=== PATIENT | male | born 1965 | race Caucasian/White ===

== ENCOUNTER 2022-01-12 10:00 | Outpatient (NON) | payer BC, SELFPAY | END 2022-01-12 10:01 | disposition home or self-care (01) | LOC: ANHLAB 01-13 11:39 | PROVIDERS: PCP Internal Medicine; Visit Provider Nurse Practitioner | DX: D22.71 Melanocytic nevi of right lower limb, including hip (principal) | CPT/HCPCS: 88305; 88342 ==

== ENCOUNTER 2024-10-14 14:44 | Emergency (ER) | payer BC, SELFPAY ==
--- NOTE | ~2024-10-14 | XR_ITS ---
EXAM: XR ankle LT min 3V, XR foot LT min 3V DATE: 10/14/2024 15:25 HISTORY: pain with trauma . COMPARISON: None available. FINDINGS: Normal mineralization. Comminuted calcaneal fracture involving fractures of the anterior p rocess, anterior body, and a horizontally oriented fracture posteriorly extending to the posterior co rtex. Irregular calcific or ossific density lateral to the lateral malleolus. No lytic or blastic les ion. Joint spaces are maintained. No erosion or periosteal change. Circumferential ankle swelling gre ater laterally. Large ankle joint effusion. IMPRESSION: Comminuted calcaneal fracture. Large ankle joint effusion. Calcific/ossific fragment zac cent to the lateral malleolus may represent chronic dystrophic change versus an acute fracture fragme nt with unclear donor site. Reviewed, dictated and finalized at location K. IMPRESSION: Comminuted calcaneal fracture. Large ankle joint effusion. Calcific /ossific fragment adjacent to the lateral malleolus may represent chronic dystr ophic change versus an acute fracture fragment with unclear donor site.
--- OUTSIDE RECORDS SUMMARY | 2024-10-14 14:46 | XMS_ITS | Clinical Summary ---
Author Organization [facility] Address [address] [place] [address] Care Team Providers Care Corporate Strategy Associate Name Role Phone Rodney Mtz MD Primary Care Provider [phone] Allergies No known active allergies Medications aspirin 81 mg enteric coated tablet Take 1 tablet (81 mg total) by mouth daily Active losartan-hydroC HLOROthiazide (HYZAAR) 50-12.5 mg per tablet Take 1 tablet by mouth daily Active metoprolol XL (TOPROL-XL) 25 mg extended release tablet Take 0.5 tablets (12.5 mg total) by mouth daily 02/03/2024 Active Active Problems Problem Noted Date Diagnosed Date 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 Overview (09/27/2018): Added automatically from request for surgery [id number] Encounters Date Type Department Care Team Description 09/20/2024 12:20 PM CDT - 09/20/2024 11:59 PM CDT Hospital Encounter [facility] Cardiac Diagnostic Lab [address] [address] Aneurysm of ascending aorta without rupture Discharge Disposition: Discharge to home or self care from Last 3 Months Surgical History Surgery Date Site/Laterality Comments COLONOSCOPY CAROTID ENARTERECTOMYY Medical History Medical History Date Comments HTN (hypertension) Stroke (HCC) Family History Medical History Relation Name Comments Heart attack Father Heart attack Paternal Grandfather Relation Name Status Comments Father Paternal Grandfather Social History Tobacco Use Types Packs/Day Years Used Date Smoking Tobacco: Never Smokeless Tobacco: Never Alcohol Use Standard Drinks/Week Comments Yes 25 (1 standard drink = 0.6 oz pu re alcohol) Sex and Gender Information Value Date Recorded Sex Assigned at Not on file Legal Sex Male 12:34 PM CDT Gender Identity Not on file Sexual Orientation Straight 11/29/2018 2: 07 PM CDT Obstetrics History Last Filed Vital Signs Vital Sign Reading Time Taken Comments Blood Pressure 146/94 03/06/2024 8:15 AM LAUNCH STEWARD Pulse 63 03/06/2024 8:15 AM LAUNCH STEWARD Temperature 36.2 C (97.1 F) 12/05/2019 10:39 AM CDT Respiratory Rate 18 10/24/2018 8:07 AM CDT Oxygen Saturation 100% 03/06/2024 8:15 AM LAUNCH STEWARD Inhaled Oxygen Concentration - - Weight 95.1 kg (209 lb 9.6 oz) 03/06/2024 8:15 A M LAUNCH STEWARD Height 190.5 cm (6' 3) 03/06/2024 8:15 AM LAUNCH STEWARD Body Mass Index 26.2 03/06/2024 8:15 AM LAUNCH STEWARD Plan of Treatment Health Maintenance Due Date Last Done Comments Colon Cancer Screening-Colonoscopy 1965 Depression Screening 1965 Hepatitis C Screening 1965 Prostate Cancer Screening-PSA 1963 DTaP/Tdap/Td Vaccine (1 - Tdap) 1974 Hepatitis B Screening 1981 Regular Well Visit/Exam 18-64 1981 Covid-19 Vaccine (3 - 2023-2 5 season) 2023 06/10/2020, 05/13/2020 Influenza Vaccine (#1) 2024 , 01/17/2018 Zoster Vaccine Completed 05/02/2018, 11/24/2017 Pneumococcal vaccine <65 Aged Out No longer eligible based on patient's age to complete this topic Medical Devices Implanted Type Area Engineering Systems Analyst Device Identifier Shelf Expiration Date Model / Serial / Lot [employer] [id number] Vascu-Guard 8x.8cm Peripheral Patch Vascular Bovine Pericardium - S0 - [id number] Implanted:Qty: 1 on 10/23/2018 by Britton Conway MD at [facility] Other - see comments Right: Carotid [employer] 05/04/2023 [id number] / 0 / [id number] Procedures Procedure Name Priority Date/Time Associated Diagnosis Comments TRANSTHORACIC ECHO (TTE) COMPLETE W DOPPLER/CF W CONTRAST Routine 09/20/2024 1:49 PM CDT Aneurysm of ascending aorta without rupture from Last 3 Months Results * TRANSTHORACIC ECHO (TTE) COMPLETE W DOPPLER/CF W CONTRAST (09/20/2024 1:49 PM CDT) EF Mod BP 79 % CONS SCIMAGE Anatomical Region Laterality Modality Ultrasound 09/20/2024 12:4 9 PM CDT Narrative 09/20/2024 3:02 PM CDT [facility] Cardiac [place] [address] [place] [address] Transthoracic Echocardiographic Report Patient Name: JOE OWENS S : 1965 (59y 8m) Gender: M Study Date: 09/20/2024 12:49:40 PM Ht(Inch): 75 Wt(LB): 209 BSA: 2.24 Survey Instrument Operator: Monserrat Zuñiga [facility] Location: [facility] Order Provider: FIDEL SINGH Heart Rate: 70 BMI: 26.12 BP: 152 / 77 Ref.Provider: FIDEL SINGH Procedures: Echocardiographic Report: Transthoracic complete echo with strain imaging and contrast, 2D, spectral and tissue Doppler, color flow Doppler, M-mode. Contrast: Contrast Enhancement was Employed: After initial imaging due to sub- optimal quality related to co-morbidity defined by patient's body habitus and due to suboptimal image quality with inadequate visualization of at least 2 of 16 LV wall segments in any view after initial imaging. Perflutren contrast was administered using the volume necessary to obtain adequate images. 0.15 ml Definity Administered, (1.35 ml wasted). Technically difficult study due to: Body habitus. Poor acoustic windows. Indications: I71.21 Aneurysm of the ascending aorta, without rupture. Conclusions: 1. Normal left ventricular size. Normal LV wall thickness. There is hyperdynamic left ventricular systolic function - LVEF measured at 79 %. Normal diastolic function. The average global longitudinal strain is normal. The LV global strain is: -21.3 %. 2. There are no regional wall motion abnormalities. 3. Normal right ventricular size. Normal right ventricular systolic function. 4. There is no significant valvular heart disease. 5. Normal-sized atria. 6. Unable to determine PASP due to inadequate TR jet. 7. Normal aortic root size when indexed (sinus of Valsalva 37 mm). Dilation of the ascending aorta when indexed (mid ascending aorta 40 mm). 8. IVC is normal in size. The estimated RA pressure is 3 mmHg. 9. Normal pericardium without pericardial effusion. Comparisons: Recommendations: Attestation: I have personally reviewed and interpreted this study without fellow or resident. Disclaimer: The study images and the final report will be retained in the patient chart by the Echo Laboratory for the legally required time period. This chart constitutes the legal record of any testing performed. Findings: Left Ventricle: Normal left ventricular size based on volume index. Normal LV wall thickness. There is hyperdynamic left ventricular systolic function. The Ejection Fraction (Perez's) is measured at 79 % Normal diastolic function. The average global longitudinal strain is normal. The LV global strain is: -21.3 % Regional Wall Motion: There are no regional wall motion abnormalities. Right Ventricle: Normal right ventricular size. Normal right ventricular systolic function. Left Atrium: The left atrium is normal in size. Right Atrium: The right atrium is normal in size. Mitral Valve: Normal mitral valve structure. No mitral regurgitation. No stenosis present. Aortic Valve: Normal trileaflet aortic valve. No aortic regurgitation. No aortic valve stenosis. The mean transaortic gradient is 4 mmHg Tricuspid Valve: Normal tricuspid valve structure. Trivial tricuspid regurgitation. Pulmonic Valve: Normal pulmonic valve structure. Trivial pulmonic regurgitation. Pericardium: Normal pericardium without pericardial effusion. Aorta: Normal aortic root size when indexed (sinus of Valsalva 37 mm). Dilation of the ascending aorta when indexed (mid ascending aorta 40 mm). IVC: IVC is normal in size. The estimated RA pressure is 3 mmHg. PASP: Unable to determine PASP due to inadequate TR jet. Measurements: 2D/MM Value Range Doppler Value Range LVIDd 2D 4.70 cm [ 4.20 - 5.80 ] AV Peak Peter 1.3 m/s [ 1.0 - 1.7 ] LVIDs 2D 2.61 cm [ 2.50 - 4.00 ] AV Peak PG 6.76 mmHg IVSd 2D 0.93 cm [ 0.60 - 1.00 ] AV Mean PG 4 mmHg LVPWd 2D 0.91 cm [ 0.60 - 1.00 ] AV VTI 26.6 cm LV Thickness Ratio 1.0 LVOT Peak Peter 1.1 m/s [ 0.7 - 1.1 ] LV FS 2D 44.44 % [ 25.00 - 43.00 ] LVOT Peak PG 4.84 mmHg LV Mass 2D 150.27 g LVOT Mean PG 3 mmHg LV Mass Index 2D 67.08 g/m2 LVOT VTI 21.1 cm RWT 0.39 LVOT Diam 2.15 cm EDV Mod BP 121.75 ml [ 62.00 - 150.00 ] JERMAINE VTI 2.88 cm2 LV EDV Index 54.35 ml/m2 LVOT/AV VTI 0.79 - Dimensionless index (DVI) ESV Mod BP 25.52 ml [ 21.00 - 61.00 ] MV E Peak Peter 0.6 m/s [ 0.6 - 1.3 ] EF Mod BP 79 % [ 52 - 72 ] MV A Peak Peter 0.6 m/s [ 1.0 - 1.2 ] LV GLS -21.3 % [ -25.0 - -18.0 ] MV E/A 1.1 ratio [ 0.8 - 1.5 ] LA Length 4C 4.73 cm MV Decel Time 243.91 msec [ 104.00 - 258.00 ] LA Length 2C 5.16 cm Med E` Peter 8.4 cm/sec [ 8.0 - 25.0 ] LA Volume BP 28.81 ml Lat E` Peter 8.4 cm/sec [ 10.0 - 25.0 ] LA Volume Index 12.86 ml/m2 [ 16.00 - 34.00 ] Average E/E` 7.14 RV Base Dimen 2D 3.3 cm [ 2.5 - 4.2 ] RV S` 13.58 cm/sec TAPSE 2.38 cm [ 1.71 - 5.00 ] RA Pressure 3 mmHg RA Volume 38.16 ml PV Peak Peter 0.8 m/s [ 0.4 - 0.8 ] RA Volume Index 17.04 ml/m2 PV Peak PG 2.56 mmHg AoR Diam 2D 3.73 cm [ 3.10 - 3.70 ] Ao Root Index 1.67 cm/m2 [ 1.00 - 2.00 ] Asc Ao Diam 2D 4.04 cm Asc Ao Index 1.80 cm/m2 Electronically Signed By: Barney Suárez MD 2024-09-20 15:01:31 CDT Procedure Note Barney Suárez MD - 09/20/2024 [facility] Cardiac [place] [address] [place] [address] Transthoracic Echocardiographic Report Patient Name: JOE OWENS S : 1965 (59y 8m) Gender: M Study Date: 09/20/2024 12:49:40 PM Ht(Inch): 75 Wt(LB): 209 BSA: 2.24 Survey Instrument Operator: Monserrat Zuñiga [facility] Location: [facility] Order Provider:FIDEL SINGH Heart Rate: 70 BMI: 26.12 BP: 152 / 77 Ref.Provider: FIDEL SINGH Procedures: Echocardiographic Report: Transthoracic complete echo with strain imagingand contrast, 2D, spectral and tissue Doppler, color flow Doppler, M-mode. Contrast: Contrast Enhancement was Employed: After initial imaging due tosub- optimal quality related to co-morbidity defined by patient's body habitus and dueto suboptimal image quality with inadequate visualization of at least 2 of 16 LV wallsegments in any view after initial imaging. Perflutren contrast was administered using thevolume necessary to obtain adequate images. 0.15 ml Definity Administered, (1.35ml wasted). Technically difficult study due to: Body habitus. Poor acoustic windows. Indications: I71.21 Aneurysm of the ascending aorta, without rupture. Conclusions: 1. Normal left ventricular size. Normal LV wall thickness. There ishyperdynamic left ventricular systolic function - LVEF measured at 79 %. Normal diastolicfunction. The average global longitudinal strain is normal. The LV global strain is:-21.3 %. 2. There are no regional wall motion abnormalities. 3. Normal right ventricular size. Normal right ventricular systolicfunction. 4. There is no significant valvular heart disease. 5. Normal-sized atria. 6. Unable to determine PASP due to inadequate TR jet. 7. Normal aortic root size when indexed (sinus of Valsalva 37 mm).Dilation of the ascending aorta when indexed (mid ascending aorta 40 mm). 8. IVC is normal in size. The estimated RA pressure is 3 mmHg. 9. Normal pericardium without pericardial effusion. Comparisons: Recommendations: Attestation: I have personally reviewed and interpreted this study withoutfellow or resident. Disclaimer: The study images and the final report will be retained in thepatient chart by the Echo Laboratory for the legally required time period. This chartconstitutes the legal record of any testing performed. Findings: Left Ventricle: Normal left ventricular size based on volume index. NormalLV wall thickness. There is hyperdynamic left ventricular systolic function. TheEjection Fraction (Perez's) is measured at 79 % Normal diastolic function. Theaverage global longitudinal strain is normal. The LV global strain is: -21.3 % Regional Wall Motion: There are no regional wall motion abnormalities. Right Ventricle: Normal right ventricular size. Normal right ventricularsystolic function. Left Atrium: The left atrium is normal in size. Right Atrium: The right atrium is normal in size. Mitral Valve: Normal mitral valve structure. No mitral regurgitation. Nostenosis present. Aortic Valve: Normal trileaflet aortic valve. No aortic regurgitation. Noaortic valve stenosis. The mean transaortic gradient is 4 mmHg Tricuspid Valve: Normal tricuspid valve structure. Trivial tricuspidregurgitation. Pulmonic Valve: Normal pulmonic valve structure. Trivial pulmonicregurgitation. Pericardium: Normal pericardium without pericardial effusion. Aorta: Normal aortic root size when indexed (sinus of Valsalva 37 mm).Dilation of the ascending aorta when indexed (mid ascending aorta 40 mm). IVC: IVC is normal in size. The estimated RA pressure is 3 mmHg. PASP: Unable to determine PASP due to inadequate TR jet. Measurements: 2D/MM Value Range DopplerValue Range LVIDd 2D 4.70 cm [ 4.20 - 5.80 ] AV Peak Vel1.3 m/s [ 1.0 - 1.7 ] LVIDs 2D 2.61 cm [ 2.50 - 4.00 ] AV Peak PG6.76 mmHg IVSd 2D 0.93 cm [ 0.60 - 1.00 ] AV Mean PG4 mmHg LVPWd 2D 0.91 cm [ 0.60 - 1.00 ] AV VTI26.6 cm LV Thickness Ratio 1.0 LVOT Peak Vel1.1 m/s [ 0.7 - 1.1 ] LV FS 2D 44.44 % [ 25.00 - 43.00 ] LVOT Peak PG4.84 mmHg LV Mass 2D 150.27 g LVOT Mean PG3 mmHg LV Mass Index 2D 67.08 g/m2 LVOT VTI21.1 cm RWT 0.39 LVOT Diam2.15 cm EDV Mod BP 121.75 ml [ 62.00 - 150.00 ] JERMAINE VTI2.88 cm2 LV EDV Index 54.35 ml/m2 LVOT/AV VTI0.79 - Dimensionless index (DVI) ESV Mod BP 25.52 ml [ 21.00 - 61.00 ] MV E Peak Vel0.6 m/s [ 0.6 - 1.3 ] EF Mod BP 79 % [ 52 - 72 ] MV A Peak Vel0.6 m/s [ 1.0 - 1.2 ] LV GLS -21.3 % [ -25.0 - -18.0 ] MV E/A1.1 ratio [ 0.8 - 1.5 ] LA Length 4C 4.73 cm MV Decel Btzb996.91 msec [ 104.00 - 258.00 ] LA Length 2C 5.16 cm Med E` Vel8.4 cm/sec [ 8.0 - 25.0 ] LA Volume BP 28.81 ml Lat E` Vel8.4 cm/sec [ 10.0 - 25.0 ] LA Volume Index 12.86 ml/m2 [ 16.00 - 34.00 ] Average E/E`7.14 RV Base Dimen 2D 3.3 cm [ 2.5 - 4.2 ] RV S`13.58 cm/sec TAPSE 2.38 cm [ 1.71 - 5.00 ] RA Pressure3 mmHg RA Volume 38.16 ml PV Peak Vel0.8 m/s [ 0.4 - 0.8 ] RA Volume Index 17.04 ml/m2 PV Peak PG2.56 mmHg AoR Diam 2D 3.73 cm [ 3.10 - 3.70 ] Ao Root Index 1.67 cm/m2 [ 1.00 - 2.00 ] Asc Ao Diam 2D4.04 cm Asc Ao Index1.80 cm/m2 Electronically Signed By: Barney Suárez MD 2024-09-20 15:01:31 CDT Fidel Singh MD CV ECHO PROCEDURES Final Result from Last 3 Months Insurance [employer] O[employer] Advance Directives For more information, please contact: [phone] * Full Code (Latest Code Status on File) Date Activated Date Inactivated Comments 10/23/2018 2:36 PM 10/24/2018 5:37 PM Care Teams Corporate Strategy Associate Relationship Specialty Start Date End Date Rodney Mtz MD [address] [place] [address] [phone] PCP - General Internal Medicine 09/08/18
--- OUTSIDE RECORDS SUMMARY | 2024-10-14 14:46 | XMS_ITS | Encounter Summary ---
Author Organization [facility] Address [facility] [place] [address] Care Team Providers Care Metal Dresser Name Role Phone Rodney Mtz MD Primary Care Provider [phone] Emily Britt Primary Care Provider [phone] Encounter Details Date Type Department Care Team (Late st Contact Info) Description 08/15/2020 Prep for Procedure [facility] Day [facility] [address] [place] [address] Trisha Bhagat MD [address] [facility] [address] [place] [address] Social History Tobacco Use Types Packs/Day Years Used Date Smoking Tobacco: Never Smokeless Tobacco: Never Alcohol Use Standard Drinks/Week Comments Yes 20 (1 standard drink = 0.6 oz pu re alcohol) Sex and Gender Information Value Date Recorded Sex Assigned at Not on file Legal Sex Male 5:29 PM CDT Gender Identity Not on file Sexual Orientation Not on file COVID-19 Exposure Response Date Recorded In the last month, have you been in contact with someone who was confirmed or suspected to have Coronavirus / COVID-19? No / Unsure 08/06/2020 1:48 PM CDT documented as of this encounter Plan of Treatment Not on file documented as of this encounter Results * PRE-SURGICAL/PRE-PROCEDURE CORONAVIRUS (COVID 19) (08/26/2020 8:18 AM CDT) SPECIMEN SOURCE NASOPHARYNGEAL SWAB 08/26/2020 8:05 AM CDT [facility] CORONAVIRUS SARS COV 2 PCR (RESP) NEGATIVE NEGATIVE 08/27/2020 1:12 PM CDT [facility] Comment: THE SARS-CoV-2 TEST HAS BEEN AUTHORIZED BY THE FDA UNDER AN EUA FOR USE BY AUTHORIZED LABORATORIES. PERFORMED BY NUCLEIC ACID AMPLIFICATION PCR FIRST TEST UNKNOWN 08/26/2020 8:05 AM CDT [facility] EMPLOYED IN HEALTHCARE NO 08/26/2020 8:05 AM CDT [facility] SYMPTOMATIC DEFINED BY CDC NO 08/26/2020 8:05 AM CDT [facility] HOSPITALIZATION STATUS NO 08/26/2020 8:05 AM CDT [facility] PATIENT IN ICU NO 08/26/2020 8:05 AM CDT [facility] RESIDENT OF [facility] NO 08/26/2020 8:05 AM CDT [facility] NASOPHARYNGEAL SWAB / Unknown 08/26/2020 8:18 AM CDT Trisha Bhagat MD MICROBIOLOGY - GENERAL ORDER LAKSHMI Final Result [facility] [address] [place] [address], [place] [phone] [facility] [address] [place] [address], [place] [phone] * MRSA SCREENING (08/26/2020 8:17 AM CDT) SPEC DESCRIPTION NASAL 08/26/2020 8:05 AM CDT [facility] SPECIAL REQUESTS NO SPECIAL REQUEST 08/26/2020 8:05 AM CDT [facility] CULTURE RESULT NO MRSA ISOLATED 08/27/2020 9:38 AM CDT [facility] SPECIMEN FROM INTERNAL NOSE / Unknown 08/26/2020 8:17 AM CDT 08/26/2020 8:18 AM CDT Trisha Bhagat MD MICROBIOLOGY - GENERAL ORDER LAKSHMI Final Result [facility] [address] [place] [address], documented in this encounter Visit Diagnoses Diagnosis Preop testing- Primary Preoperative examination, unspecified documented in this encounter Additional Health Concerns Infection Onset Date Last Indicated Resolved Time COVID-19 Rule Out 08/26/2020 08/26/2020 08/27/2020 1:12 PM CDT MRSA Comment:11/10/2020 +MRSA Nasal 11/11/2020 11/11/2020 COVID-19 Rule Out 03/18/2023 03/18/2023 03/18/2023 3:59 PM OCEAN FREIGHT AGENT documented as of this encounter Care Teams Metal Dresser Relationship Specialty Start Date End Date Rodney Mtz MD [address] [place] [id number] PCP - General INTERNAL MEDICINE 08/06/20 12/21/23 Emiyl Britt PA [address] [place] [id number] PCP - General PHYSICIAN SPECIAL EDUCATION AIDE 12/22/23 documented as of this encounter
--- OUTSIDE RECORDS SUMMARY | 2024-10-14 14:46 | XMS_ITS | Encounter Summary ---
Author Organization [facility] Address [facility] [place] [address] Care Team Providers Care Printing Worker Supervisor Name Role Phone Rodney Mtz MD Primary Care Provider [phone] Emily Britt Primary Care Provider [phone] Encounter Details Date Type Department Care Team (Late st Contact Info) Description 11/06/2020 Prep for Procedure [facility] Day Services [address] [place] [address] Trisha Bhagat MD [address] [facility] [address] [place] [address] Social History Tobacco Use Types Packs/Day Years Used Date Smoking Tobacco: Never Smokeless Tobacco: Never Alcohol Use Standard Drinks/Week Comments Yes 20 (1 standard drink = 0.6 oz pu re alcohol) weekly Sex and Gender Information Value Date Recorded Sex Assigned at Not on file Legal Sex Male 5:29 PM CDT Gender Identity Not on file Sexual Orientation Not on file documented as of this encounter Plan of Treatment Not on file documented as of this encounter Visit Diagnoses Diagnosis Preop testing- Primary Preoperative examination, unspecified documented in this encounter Additional Health Concerns Infection Onset Date Last Indicated Resolved Time MRSA Comment:11/10/2020 +MRSA Nasal 11/11/2020 11/11/2020 COVID-19 Rule Out 03/18/2023 03/18/2023 03/18/2023 3:59 PM FIRER ELECTRIC LOCOMOTIVE documented as of this encounter Care Teams Printing Worker Supervisor Relationship Specialty Start Date End Date Rodney Mtz MD [address] [place] [id number] PCP - General INTERNAL MEDICINE 08/06/20 12/21/23 Emily Britt PA [facility] [place] [address] PCP - General PHYSICIAN RN FACULTY 12/22/23 documented as of this encounter
--- OUTSIDE RECORDS SUMMARY | 2024-10-14 14:46 | XMS_ITS | Referral Summary ---
Author Organization [facility] Address [address] [place] [address] Care Team Providers Care Senior Principal Process Engineer Name Role Phone Rodney Mtz MD Primary Care Provider [phone] Encounters Date Type Department Care Team Description 09/20/2024 12:20 PM CDT - 09/20/2024 11:59 PM CDT Hospital Encounter [facility] Cardiac Diagnostic Lab [address] [facility] [address] [place] [address] Aneurysm of ascending aorta without rupture Discharge Disposition: Discharge to home or self care from Last 3 Months Allergies No known active allergies Medications aspirin [...] (09/27/2018): Added automatically from request for surgery [id number] Social History Tobacco Use Types Packs/Day Years Used Date Smoking Tobacco: Never Smokeless Tobacco: Never Alcohol Use Standard Drinks/Week Comments Yes 25 (1 standard drink = 0.6 oz pu re alcohol) Sex and Gender Information Value Date Recorded Sex Assigned at Not on file Legal Sex Male 12:34 PM CDT Gender Identity Not on file Sexual Orientation Straight 11/29/2018 2: 07 PM CDT Last Filed Vital Signs Vital Sign Reading Time Taken Comments Blood Pressure 146/94 03/06/2024 8:15 AM CREEL CLERK Pulse 63 03/06/2024 8:15 AM CREEL CLERK Temperature 36.2 C (97.1 F) 12/05/2019 10:39 AM CDT Respiratory Rate 18 10/24/2018 8:07 AM CDT Oxygen Saturation 100% 03/06/2024 8:15 AM CREEL CLERK Inhaled Oxygen Concentration - - Weight 95.1 kg (209 lb 9.6 oz) 03/06/2024 8:15 A M CREEL CLERK Height 190.5 cm (6' 3) 03/06/2024 8:15 AM CREEL CLERK Body Mass Index 26.2 03/06/2024 8:15 AM CREEL CLERK Plan of Treatment Not on file Medical Devices Implanted Type Area Frame Repairer Device Identifier Shelf Expiration Date Model / Serial / Lot [employer] [id number] Vascu-Guard 8x.8cm Peripheral Patch Vascular Bovine Pericardium - S0 - [id number] Implanted:Qty: 1 on 10/23/2018 by Britton Conway MD at [facility] Other - see comments Right: Carotid [employer] 05/04/2023 [id number] / 0 / [id number] Procedures Procedure Name Priority Date/Time Associated Diagnosis [...] PM CDT Narrative 09/20/2024 3:02 PM CDT [facility] [place] [address] [place] [address] Transthoracic Echocardiographic Report Patient Name: JOE OWENS S : 1965 (59y 8m) Gender: M Study Date: 09/20/2024 12:49:40 PM Ht(Inch): 75 Wt(LB): 209 BSA: 2.24 Embryology Teacher: Monserrat Zuñiga [facility] Location: [facility] Order Provider: FIDEL SINGH Heart Rate: 70 [...] Procedure Note Barney Suárez MD - 09/20/2024 [facility] [place] [address] [place] [address] Transthoracic Echocardiographic Report Patient Name: JOE OWENS S : 1965 (59y 8m) Gender: M Study Date: 09/20/2024 12:49:40 PM Ht(Inch): 75 Wt(LB): 209 BSA: 2.24 Embryology Teacher: Monserrat Zuñiga [facility] Location: [facility] Order Provider:PAWALE,FIDEL Heart Rate: 70 BMI: 26.12 BP: 152 [...] LA Length 4C 4.73 cm MV Decel Qwvo827.91 msec [ 104.00 - 258.00 ] LA [...] Final Result from Last 3 Months Insurance [employer] O[employer] Advance Directives For more information, please contact: [phone] * Full Code (Latest Code Status on File) Date Activated Date Inactivated Comments 10/23/2018 2:36 PM 10/24/2018 5:37 PM Care Teams Senior Principal Process Engineer Relationship Specialty Start Date End Date Rodney Mtz MD [address] [place] [id number] PCP - General Internal Medicine 09/08/18
--- OUTSIDE RECORDS SUMMARY | 2024-10-14 14:46 | XMS_ITS | Encounter Summary ---
Author Organization [facility] Address [address] [place] [address] Care Team Providers Care Image Editor Name Role Phone Unavailable Primary Care Provider Unavailabl e Prior Encounters Date Type Department Care Team Description 09/10/2024 7:00 AM CDT Office Visit [facility] [address] [place] [address] Girma Godoy DMD 08/06/2024 7:00 AM CDT Office Visit [facility] [address] [place] [address] Girma Godoy DMD Plan of Treatment Upcoming Encounters Date Type Department Care Team (Late st Contact Info) Description 03/11/2025 8:00 AM TREADLE CUT OFF SAW OPERATOR Office Visit [facility] [address] [place] [address] Girma Godoy DMD [address] [place] [address] Procedures Procedure Name Priority Date/Time Associated Diagnosis Comments 14 ENDODONTIC THERAPY, MOLAR TOOTH (EXCLUDING FINAL RELIGION) Routine 09/10/2024 7:00 AM CDT 14 APEXIFICATION/RECALCIFICAT ION INTERIM MEDICATION REPLACEMENT Routine 08/06/2024 7:[address] CAPTURE AND INTERPRETATION WITH FIELD OF VIEW OF BOTH JAWS; WITH OR WITHOUT CRANIUM Routine 08/06/2024 7:00 AM CDT LIMITED ORAL EVALUATION - PROBLEM FOCUSED Routine 08/06/2024 7:00 AM CDT Visit Diagnoses Not on file Insurance [facility] PPO [facility] AND [facility]
--- OUTSIDE RECORDS SUMMARY | 2024-10-14 14:46 | XMS_ITS | Clinical Summary ---
Author Organization [facility] Address [address] [place] [address] Care Team Providers Care Environmental Issues Instructor Name Role Phone Unavailable Primary Care Provider Unavailabl e Encounters Date Type Department Care Team Description 09/10/2024 7:00 AM CDT Office Visit [facility] [address] [place] [phone] Girma Godoy DMD 08/06/2024 7:00 AM CDT Office Visit [facility] [address] [place] [phone] Girma Godoy DMD from Last 3 Months Social History Tobacco Use Types Packs/Day Years Used Date Smoking Tobacco: Never Assessed Sex and Gender Information Value Date Recorded Sex Assigned at Not on file Legal Sex Male 11:06 AM PDT Gender Identity Not on file Sexual Orientation Not on file Plan of Treatment Upcoming Encounters Date Type Department Care Team (Late st Contact Info) Description 03/11/2025 8:00 AM 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 Office Visit [facility] [address] [place] [address] Girma Godoy DMD [address] [place] [address] Health Maintenance Due Date Last Done Comments Dental Oral Exam 1963 Dental Prophylaxis 1963 Dental X-Ray: Bitewings 1963 Dental X-Ray: Full Mouth 1963 Dental CBCT 08/07/2027 08/06/2024 Dental X-Ray: Panoramic 08/09/2027 08/07/2024 Procedures Procedure Name Priority Date/Time Associated Diagnosis Comments 14 ENDODONTIC THERAPY, MOLAR TOOTH (EXCLUDING FINAL SHINTO) Routine 09/10/2024 7:00 AM CDT 14 APEXIFICATION/RECALCIFICAT ION INTERIM MEDICATION REPLACEMENT Routine 08/06/2024 7:00 AM CDT [address] [address] CT CAPTURE AND INTERPRETATION WITH FIELD OF VIEW OF BOTH JAWS; WITH OR WITHOUT CRANIUM Routine 08/06/2024 7:00 AM CDT LIMITED ORAL EVALUATION - PROBLEM FOCUSED Routine 08/06/2024 7:00 AM CDT from Last [address] [facility] PPO [id number] [place] [address] [facility]
--- OUTSIDE RECORDS SUMMARY | 2024-10-14 14:46 | XMS_ITS | Clinical Summary ---
Author Organization [facility] Address [address] [place] [address] Care Team Providers Care Cleat Thrower Name Role Phone Emily Britt Primary Care Provider [phone] Allergies No known active allergies Medications losartan-hydroC HLOROthiazide 50-12.5 MG tablet TAKE 1 TABLET BY MOUTH EVERY DAY. APPOINTMENT AND LABS NEEDED 06/10/19 21 Active aspirin EC (ASPIRIN EC) 81 MG tablet Take 1 tablet (81 mg total) by mouth daily. Active predniSONE (DELTASONE) 10 mg tabletIndicatio ns:Acute cough,Viral upper respiratory illness,Cough productive of yellow sputum 40 mg x 2 days 30 mg x 2 days 20 mg x 2 days 10 mg x 2 days. (Once a day dosing) 20 tablet 03/18/20 23 Active Sodium Sulfate-Mag Sulfate-KCl (SUTAB) 6202-481-701 MG TabIndications: Encounter for screening colonoscopy Take 12 tablets by mouth see administration instructions. 24 tablet 02/01/20 24 Active probiotic (FLORAJEN3) Cap capsule Take 1 capsule by mouth 3 (three) times daily with meals. Active Active Problems Problem Noted Date Diagnosed Date Antibiotic reaction, initial encounter Umbilical hernia without obstruction or gangrene 08/06/2020 Resolved Problems Problem Noted Date Diagnosed Date Resolved Date Encounter for screening colonoscopy 02/01/2024 02/06/2024 Immunizations Immunization Administration Dates Next Due MODERNA COVID-19 (12+) MRNA, LNP-S, PF, 100 MCG/ 0.5 ML DOSE 06/10/2020,05/13/2020 Family History Relation Status Comments Brother Alive Father Mother Alive Sister Alive Social History Tobacco Use Types Packs/Day Years Used Date Smoking Tobacco: Never Smokeless Tobacco: Never Tobacco Cessation:Counseling Given: No Alcohol Use Standard Drinks/Week Comments Yes 16.7 (1 standard drink = 0.6 oz pure alcohol) weekly Sex and Gender Information Value Date Recorded Sex Assigned at Not on file Legal Sex Male 5:29 PM CDT Gender Identity Not on file Sexual Orientation Not on file Last Filed Vital Signs Vital Sign Reading Time Taken Comments Blood Pressure 124/81 04/27/2024 9:25 AM GEOGRAPHY INSTRUCTOR Pulse 62 04/27/2024 9:25 AM GEOGRAPHY INSTRUCTOR Temperature 36.9 C (98.4 F) 04/27/2024 7:36 AM GEOGRAPHY INSTRUCTOR Respiratory Rate 18 04/27/2024 9:25 AM GEOGRAPHY INSTRUCTOR Oxygen Saturation 99% 04/27/2024 9:25 AM GEOGRAPHY INSTRUCTOR Inhaled Oxygen Concentration - - Weight 93 kg (205 lb) 04/18/2024 1:06 PM GEOGRAPHY INSTRUCTOR Height 190.5 cm (6' 3) 04/18/2024 1:06 PM GEOGRAPHY INSTRUCTOR Body Mass Index 25.62 04/18/2024 1:06 PM GEOGRAPHY INSTRUCTOR Plan of Treatment Health Maintenance Due Date Last Done Comments Annual Physical 1966 Hepatitis C 1981 DTaP, Tdap and Td Vaccines ( 1 - Tdap) 1982 Pneumococcal Vaccine: 50+ Years (1 of 1 - PCV) 2013 Zoster Vaccines (1 of 2) 2013 COVID-19 Vaccine (3 - 2023-2 5 season) 2023 06/10/2020, 05/13/2020 PHQ-2 (Physician [place]) 03/28/2024 Colorectal Cancer Screening Colonoscopy (10 Years) 04/27/2034 04/27/2024, 04/27/2024 RSV Immunization or 60+ Years (1 - 1-dose 75+ series) 2038 Meningococcal B Vaccine Aged Out No l onger eligible based on patient's age to complete this topic Meningococcal Vaccine Aged Out No gaston arnold eligible based on patient's age to complete this topic RSV Immunizations Under 20 Months Aged Out No longer eligible b ased on patient's age to complete this topic Medical Devices Implanted Type Area Woodworker Device Identifier Shelf Expiration Date Model / Serial / Lot Mesh Surgical Ventralight St Echo 2 15cm [place] - [id number] Implanted:Qty: 1 on 11/12/2020 by Trisha Bhagat MD at [facility] Mesh N/A: [employer] 06/22/2021 [id number] / / [id number] Procedures Procedure Name Priority Date/Time Associated Diagnosis Comments COLONOSCOPY Routine 04/27/2024 7:25 AM GEOGRAPHY INSTRUCTOR from Last 3 Months or Most Recently Relevant to Health Maintenance Additional Health Concerns Infection Onset Date Last Indicated MRSA Comment:11/10/2020 +MRSA Nasal 11/11/2020 11/11/2020 Insurance [facility] Care Teams Cleat Thrower Relationship Specialty Start Date End Date Emily Britt PA [address] [place] [id number] PCP - General 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
[2024-10-14 14:55] VITALS: BP 162/87; PULSE 90; RESP 18; TEMP 37; O2SAT 96
--- NOTE | 2024-10-14 15:18 | ED_ITS ---
HPI - Extremity Injury (Lower) General Chief Complaint: Extremity Injury, Lower Stated Complaint: foot injury Patient presents to the [facility] accompanied by spouse with complaints of pain, swelling, bruising to left ankle that began last night. Patient noted jumping off a table and twisting this ankle. Patient took ibuprofen last night but having significant pain with weight-bearing. denies numbness or tingling in foot or toes. Related Data Home Medications ?Medication ?Instructions ?Recorded ?Confirmed ?Last Taken ?Type cholecalciferol (vitamin D3) 50 50 mcg PO DAILY 12/23/23 Unknown History mcg (2,000 unit) capsule Allergies Allergy/AdvReac Type Severity Reaction Status Date / Time vancomycin AdvReac Mild Unknown Verified 12/22/23 08:03 Review of Systems Constitutional: Constitutional: Reports no additional constitutional complaints Eyes: Eyes: Reports no additional eye complaints ENT: Reports system reviewed and no additional complaints, except as documented Cardiovascular: Cardiovascular: Reports no additional cardiovascular complaints Respiratory: Respiratory: Reports no additional respiratory complaints Gastrointestinal: Gastrointestinal: Reports no additional gastrointestinal complaints Genitourinary: Genitourinary: Reports no additional male genitourinary complaints Musculoskeletal: Musculoskeletal: Reports as per HPI, Reports arthralgias and Reports joint swelling Integumentary/Breasts: Skin/Breast: Reports as per HPI, Denies breast mass, Denies pruritus and Denies rash Comments: bruising left foot and ankle Neurologic: Reports as per HPI, Denies numbness and Denies weakness Psychiatric: Psychiatric: Reports no additional psychiatric complaints Endocrine: Endocrine: Reports no additional endocrine complaints Hematologic/Lymphatic: Hematologic/Lymphatic: Reports no additional hematologic/lymphatic complaints Allergic/Immunologic: Allergic/Immunologic: Reports no additional allergic/immunologic complaints [facility] Past Medical History Medical History (Updated 10/14/24 @ 16:21 by JEZ Ramsay-C) FH: coronary artery disease dad passed with UT at 54 y/o Vitamin D deficiency Hyperglycemia Carotid artery dissection HTN (hypertension) History of umbilical hernia Surgical History Surgical History (Updated 12/31/22 @ 08:25 by Yessi Og MA) History of hernia surgery History of right-sided carotid endarterectomy Family History Family History (Updated 12/31/22 @ 08:26 by Yessi Og MA) Mother Cancer Father No problems noted. Social History Social History (Updated 12/19/23 @ 13:26 by Juvenal Vasquez) Social History: 12/19/23 patient declined SDOH Smoking status: Never smoker Alcohol intake: current Drinks per week: 12 Alcohol use details: social Substance use: never Substance use type: does not use Living arrangements: with family Occupation/Education: occupation Additional occupation/education comments: [employer] Gender identity (if verbalized by the patient): Male Exam Const: General: healthy appearing and no acute distress Nutritional Appearance: well nourished Orientation/consciousness: patient oriented x3 Limitations: no limitations Resp: Effort & Inspection: normal respiratory effort Cardio: Rate: regular rate Skin: Rashes: no rashes Wounds: no wounds Neuro: General: patient oriented x3 Speech: normal speech Gait exam (Neuro): gait abnormal (limping, due to ankle pain- in wheelchair) Extrem: Left lower extremity: ankle Details: abnormal to inspection, tenderness, swelling, abnormal ROM and ecchymosis; achilles tendon exam normal and foot Details: normal capillary refill, abnormal to inspection, toes with normal ROM, edema, ecchymosis, vascular exam Details: dorsalis pedis pulse present, posterior tibial pulse present and normal capillary refill, tendon exam active flexion normal and active extension normal and motor-sensory exam two point discrimination normal and light-touch normal Psych: Mental Status: mental status grossly normal Affect: normal affect Attitude: cooperative Course Course Level of Care: Express Care Visit Vital Signs Vital signs: Vital Signs Temperature 98.6 F 10/14/24 14:55 Pulse Rate 90 10/14/24 14:55 Respiratory Rate 18 10/14/24 14:55 Blood Pressure 162/87 H 10/14/24 14:55 Pulse Oximetry 96 10/14/24 14:55 Oxygen Delivery Room Air 10/14/24 14:55 Temperature 98.6 F 10/14/24 14:55 Pulse Rate 90 10/14/24 14:55 Respiratory Rate 18 10/14/24 14:55 Blood Pressure 162/87 H 10/14/24 14:55 Pulse Oximetry 96 10/14/24 14:55 Oxygen Delivery Room Air 10/14/24 14:55 MDM - Extremity Injury (Lower) MDM Narrative Medical decision making narrative: X-rays ordered. Calcaneus fracture noted. OCL placed in clinic. Crutches given to patient. Ortho follow-up with Dr. Tomlinson is to be scheduled by patient. Discharge instructions reviewed with patient, as well as provided in writing per nursing staff. The instructions also include specific and strict return/GO TO THE ER as well as f/u information. All questions have been answered, and the patient deny any further questions with discharge and discharge plan. Differential Diagnosis Differential diagnosis: Likely ankle sprain and strain, fracture of toe and ankle fracture Medical Records Attestation: I reviewed the patient's medical records. Imaging Data Radiologist's impression: IMPRESSION: Comminuted calcaneal fracture. Large ankle joint effusion. Calcific/ossific fragment adjacent to the lateral malleolus may represent chronic dystrophic change versus an acute fracture fragment with unclear donor site. Reviewed, dictated and finalized at location K. Discharge Plan Discharge Clinical Impression: Fracture of calcaneus, left, closed Patient Disposition: Home Condition: Stable Instructions: Antibiotic Form, Foot Fracture in Adults (ED), Splint Care (ED) Additional Instructions: there is a fracture noted in your heel bone We have placed a temporary splint- do not remove this, do not get this wet. M ay cover with a plastic bag of trash bag to shower. Ensure to take consistent ibuprofen to help with pain and inflammation. May use the tramadol as needed for severe pain. This can make you drowsy do not drive, drink alcohol or operate heavy machinery while taking this medication. Call Orthopedics tomorrow to schedule a follow-up for further evaluation and treatment. Give began to have significant pain, numbness, tingling go to the emergency room for further evaluation. Patient Language: Slovenian Prescriptions: New tramadol 50 mg tablet 50 mg PO Q6H PRN (Reason: pain) Qty: 20 0RF No Action cholecalciferol (vitamin D3) 50 mcg (2,000 unit) capsule 50 mcg PO DAILY rosuvastatin [Crestor] 10 mg tablet 10 mg PO DAILY Qty: 90 0RF cholecalciferol (vitamin D3) 50 mcg (2,000 unit) capsule 50 mcg PO DAILY Qty: 90 0RF Rx Instructions: OTC metoprolol succinate 25 mg tablet extended release 24 hr 12.5 mg PO DAILY Qty: 45 0RF Rx Instructions: Take one-half tablet daily. (Total of 12.5mg) losartan-hydrochlorothiazide 50-12.5 mg tablet 1 tablet PO DAILY Qty: 90 0RF Follow-up/Referrals: Tito Tomlinson MD [Physician] - (Call Tuesday/Tomorrow for appointment ) Emily Britt PA-C [Primary Care Provider] - Time of Disposition: 16:23
== END 2024-10-14 16:55 | disposition home or self-care (01) ==
PROVIDERS: Emergency Provider Nurse Practitioner Family; PCP Physician Assistant Medical
DX: S92.002A Unspecified fracture of left calcaneus, initial encounter for closed fracture (principal); W17.89XA Other fall from one level to another, initial encounter; I10 Essential (primary) hypertension; E55.9 Vitamin D deficiency, unspecified; Z86.79 Personal history of other diseases of the circulatory system; Z82.49 Family history of ischemic heart disease and other diseases of the circulatory system
CPT/HCPCS: 29515; 73610; 73630; 99214; G0463